=== PATIENT | male | born 1965 | race Caucasian/White ===

== ENCOUNTER 2021-11-14 16:00 | Outpatient (REF) | payer OTHER, SELFPAY ==
[2021-11-14 16:12] LABS: MANUAL DIFF FLAG NO
[2021-11-14 16:18] LABS: Basophils Absolute Auto 0.1 X10*3/uL (0.0-0.2); Eosinophils Absolute Auto 0.3 X10*3/uL (0.0-0.4); Eosinophils Percent Auto 4.6 % (0-4); Hematocrit 40.6 % (42.0-52.0); Hemoglobin 14.1 g/dl (14.0-18.0); Imm Gran Abs Auto 0.02 X10*3/uL (0.00-0.03); Imm Gran Pct Auto 0.3 % (0.0-0.4); Lymphocytes Absolute Auto 1.4 X10*3/uL (1.2-4.9); Lymphocytes Percent Auto 24.2 % (20-40); Mean Corpuscular HGB Conc 34.7 g/dl (31.0-36.0); Mean Corpuscular Hemoglobin 30.9 pg (27.0-33.0); Mean Platelet Volume 8.8 fL (9.4-12.4); Monocytes Absolute Auto 0.9 X10*3/uL (0.1-1.2); Monocytes Percent Auto 14.9 % (2-11); Neutrophils Absolute Auto 3.2 x10*3/uL (2.0-8.3); Platelet Count 225 X10*3/uL (160-400); Red Blood Count 4.56 X10*6/uL (4.60-5.80); Red Cell Distribution Width 11.2 % (11.0-16.0); White Blood Count 5.9 X10*3/uL (4.8-10.8)
[2021-11-14 16:47] LABS: Alanine Aminotransferase 25 U/L (0-40); Albumin Level 4.7 g/dL (3.5-5.0); Alkaline Phosphatase 79 U/L (39-117); Anion Gap 15 (12-20); Aspartate Amino Transferase 27 U/L (5-37); Bilirubin Total 1.2 mg/dL (0.0-1.0); Blood Urea Nitrogen 16 mg/dL (9-16); Calcium 9.8 mg/dL (8.4-10.2); Carbon Dioxide 25 mmol/L (22-29); Chloride 96 mmol/L (96-108); Cholesterol 258 mg/dL; Estimated Glomerular Filt Rate > 60; Glucose Fasting 76 mg/dL (60-99); HDL Cholesterol 83 mg/dL; LDL Cholesterol Calculated 164 mg/dl; Sodium 132 mmol/L (135-145); Total Protein 7.6 g/dL (6.5-8.0); Triglycerides 59 mg/dL
[2021-11-14 17:34] LABS: Prostate Specific Antigen Scr 4.28 ng/mL (<0.05-4.0); TSH reflex Free T4 0.57 uIU/mL (0.32-4.0)
[2021-11-14 17:49] LABS: Creatinine Urine 44.93 mg/dL; Microalbumin Urine < 5.0 mg/L
== END 2021-11-14 16:01 | disposition home or self-care (01) ==
LOC: HO.LAB 16:00
PROVIDERS: PCP Physician Assistant; Visit Provider Physician Assistant
DX: I10 Essential (primary) hypertension (principal); Z12.5 Encounter for screening for malignant neoplasm of prostate
CPT/HCPCS: 36415; 80053; 80061; 82043; 84153; 84443; 85025; 85027

== ENCOUNTER 2022-02-13 16:29 | Outpatient (REF) | payer OTHER, SELFPAY ==
[2022-02-13 17:40] LABS: Hematocrit 39.5 % (42.0-52.0); Hemoglobin 13.5 g/dl (14.0-18.0); Mean Corpuscular HGB Conc 34.2 g/dl (31.0-36.0); Mean Corpuscular Hemoglobin 30.5 pg (27.0-33.0); Mean Corpuscular Volume 89.2 fL (80.0-98.0); Mean Platelet Volume 9.3 fL (9.4-12.4); Platelet Count 233 X10*3/uL (160-400); Red Blood Count 4.43 X10*6/uL (4.60-5.80); Red Cell Distribution Width 11.4 % (11.0-16.0); White Blood Count 5.1 X10*3/uL (4.8-10.8)
[2022-02-13 18:05] LABS: Alanine Aminotransferase 23 U/L (0-40); Albumin Level 4.7 g/dL (3.5-5.0); Alkaline Phosphatase 70 U/L (39-117); Anion Gap 14 (12-20); Aspartate Amino Transferase 26 U/L (5-37); Bilirubin Total 1.1 mg/dL (0.0-1.0); Blood Urea Nitrogen 18 mg/dL (9-16); Calcium 9.5 mg/dL (8.4-10.2); Carbon Dioxide 26 mmol/L (22-29); Chloride 98 mmol/L (96-108); Cholesterol 213 mg/dL; Estimated Glomerular Filt Rate > 60; Glucose Fasting 76 mg/dL (60-99); HDL Cholesterol 88 mg/dL; LDL Cholesterol Calculated 115 mg/dl; Potassium 4.1 mmol/L (3.3-5.1); Sodium 134 mmol/L (135-145); Total Protein 7.5 g/dL (6.5-8.0); Triglycerides 50 mg/dL
== END 2022-02-13 16:30 | disposition home or self-care (01) ==
LOC: HO.LAB 16:29
PROVIDERS: PCP Physician Assistant; Visit Provider Physician Assistant
DX: E78.2 Mixed hyperlipidemia (principal)
CPT/HCPCS: 36415; 80053; 80061; 85027

== ENCOUNTER 2022-07-09 11:54 | Outpatient (REF) | payer OTHER, SELFPAY ==
--- NOTE | 2022-07-09 | EMG_ITS ---
Right median and ulnar motor and sensory studies were performed. Right radial sensory study was performed and paraspinal muscles were tested. IMPRESSION: 1. 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 2. Mild to moderate right ulnar neuropathy across cubital tunnel. MD FLORES Drake/RAKESH / [id number]
== END 2022-07-09 11:55 | disposition home or self-care (01) ==
LOC: HO.NEURO 11:54
PROVIDERS: PCP Physician Assistant; Visit Provider Physician Assistant
DX: R20.2 Paresthesia of skin (principal); R53.1 Weakness
CPT/HCPCS: 95886; 95909

== ENCOUNTER 2022-08-06 16:22 | Outpatient (REF) | payer OTHER, SELFPAY ==
[2022-08-06 17:06] LABS: Hematocrit 39.6 % (42.0-52.0); Hemoglobin 13.8 g/dl (14.0-18.0); Mean Corpuscular HGB Conc 34.8 g/dl (31.0-36.0); Mean Corpuscular Hemoglobin 30.8 pg (27.0-33.0); Mean Corpuscular Volume 88.4 fL (80.0-98.0); Platelet Count 244 X10*3/uL (160-400); Red Blood Count 4.48 X10*6/uL (4.60-5.80); Red Cell Distribution Width 11.2 % (11.0-16.0); White Blood Count 5.9 X10*3/uL (4.8-10.8)
[2022-08-06 18:22] LABS: Alanine Aminotransferase 23 U/L (0-40); Albumin Level 4.6 g/dL (3.5-5.0); Alkaline Phosphatase 75 U/L (39-117); Anion Gap 12 (12-20); Aspartate Amino Transferase 25 U/L (5-37); Bilirubin Total 0.9 mg/dL (0.0-1.0); Blood Urea Nitrogen 12 mg/dL (9-16); Calcium 9.5 mg/dL (8.4-10.2); Carbon Dioxide 27 mmol/L (22-29); Chloride 99 mmol/L (96-108); Cholesterol 220 mg/dL; Estimated Glomerular Filt Rate > 60; Glucose Fasting 74 mg/dL (60-99); HDL Cholesterol 80 mg/dL; LDL Cholesterol Calculated 128 mg/dl; Potassium 4.4 mmol/L (3.3-5.1); Sodium 134 mmol/L (135-145); TSH reflex Free T4 0.72 uIU/mL (0.32-4.0); Total Protein 7.3 g/dL (6.5-8.0); Triglycerides 62 mg/dL
[2022-08-06 18:29] LABS: Creatinine Urine 97.63 mg/dL; Microalbumin Urine < 5.0 mg/L
== END 2022-08-06 16:23 | disposition home or self-care (01) ==
LOC: HO.LAB 16:22
PROVIDERS: PCP Physician Assistant; Visit Provider Physician Assistant
DX: I10 Essential (primary) hypertension (principal); E78.2 Mixed hyperlipidemia
CPT/HCPCS: 36415; 80053; 80061; 82043; 84443; 85027

== ENCOUNTER 2023-02-04 16:26 | Outpatient (REF) | payer OTHER, SELFPAY ==
[2023-02-04 17:40] LABS: Hematocrit 40.7 % (42.0-52.0); Mean Corpuscular HGB Conc 34.4 g/dl (31.0-36.0); Mean Corpuscular Hemoglobin 30.6 pg (27.0-33.0); Mean Corpuscular Volume 89.1 fL (80.0-98.0); Mean Platelet Volume 9.2 fL (9.4-12.4); Platelet Count 229 X10*3/uL (160-400); Red Blood Count 4.57 X10*6/uL (4.60-5.80); Red Cell Distribution Width 11.4 % (11.0-16.0); White Blood Count 5.6 X10*3/uL (4.8-10.8)
[2023-02-04 18:10] LABS: Microalbum/Creatinine Ratio Ur 4.8 ug/mg cr
[2023-02-04 18:24] LABS: Alanine Aminotransferase 28 U/L (0-40); Albumin Level 4.6 g/dL (3.5-5.0); Alkaline Phosphatase 81 U/L (39-117); Anion Gap 15 (12-20); Aspartate Amino Transferase 32 U/L (5-37); Bilirubin Total 1.5 mg/dL (0.0-1.0); Blood Urea Nitrogen 14 mg/dL (9-16); Calcium 9.6 mg/dL (8.4-10.2); Carbon Dioxide 25 mmol/L (22-29); Chloride 98 mmol/L (96-108); Cholesterol 203 mg/dL; Estimated Glomerular Filt Rate > 60; Glucose Fasting 66 mg/dL (60-99); HDL Cholesterol 83 mg/dL; LDL Cholesterol Calculated 110 mg/dl; Potassium 4.2 mmol/L (3.3-5.1); Sodium 134 mmol/L (135-145); Total Protein 7.4 g/dL (6.5-8.0); Triglycerides 51 mg/dL
[2023-02-04 18:40] LABS: Prostate Specific Antigen Scr 4.99 ng/mL (<0.05-4.0); TSH reflex Free T4 0.58 uIU/mL (0.32-4.0)
== END 2023-02-04 16:27 | disposition home or self-care (01) ==
LOC: HO.LAB 16:26
PROVIDERS: PCP Physician Assistant; Visit Provider Physician Assistant
DX: Z12.5 Encounter for screening for malignant neoplasm of prostate (principal); R97.20 Elevated prostate specific antigen [PSA]; I10 Essential (primary) hypertension; E78.2 Mixed hyperlipidemia
CPT/HCPCS: 36415; 80053; 80061; 82043; 84153; 84443; 85027

== ENCOUNTER 2023-08-11 16:30 | Outpatient (REF) | payer OTHER, SELFPAY ==
[2023-08-11 18:19] LABS: Hematocrit 40.9 % (42.0-52.0); Hemoglobin 14.2 g/dl (14.0-18.0); Mean Corpuscular HGB Conc 34.7 g/dl (31.0-36.0); Mean Corpuscular Hemoglobin 31.1 pg (27.0-33.0); Mean Corpuscular Volume 89.5 fL (80.0-98.0); Mean Platelet Volume 9.6 fL (9.4-12.4); Platelet Count 305 X10*3/uL (160-400); Red Blood Count 4.57 X10*6/uL (4.60-5.80); Red Cell Distribution Width 11.4 % (11.0-16.0); White Blood Count 5.9 X10*3/uL (4.8-10.8)
[2023-08-11 19:19] LABS: Alanine Aminotransferase 27 U/L (0-40); Albumin Level 4.6 g/dL (3.5-5.0); Alkaline Phosphatase 83 U/L (39-117); Anion Gap 12 (12-20); Aspartate Amino Transferase 30 U/L (5-37); Blood Urea Nitrogen 11 mg/dL (9-16); Calcium 9.5 mg/dL (8.4-10.2); Carbon Dioxide 28 mmol/L (22-29); Chloride 99 mmol/L (96-108); Cholesterol 202 mg/dL (<200); Estimated Glomerular Filt Rate > 60; Glucose Fasting 67 mg/dL (60-99); HDL Cholesterol 76 mg/dL (>40); LDL Cholesterol Calculated 114 mg/dL (<100); Potassium 3.8 mmol/L (3.3-5.1); Sodium 135 mmol/L (135-145); Total Protein 7.8 g/dL (6.5-8.0); Triglycerides 61 mg/dL (<150)
[2023-08-11 19:40] LABS: Prostate Specific Antigen Scr 5.11 ng/mL (<0.05-4.0)
== END 2023-08-11 16:31 | disposition home or self-care (01) ==
LOC: HO.LAB 16:30
PROVIDERS: PCP Physician Assistant; Visit Provider Physician Assistant
DX: Z12.5 Encounter for screening for malignant neoplasm of prostate (principal); R97.20 Elevated prostate specific antigen [PSA]; I10 Essential (primary) hypertension; E78.2 Mixed hyperlipidemia
CPT/HCPCS: 36415; 80053; 80061; 84153; 85027

== ENCOUNTER 2023-08-19 15:33 | Outpatient (AMB) | payer OTHER, SELFPAY ==
[2023-08-19 15:42] VITALS: BP 128/78; PULSE 76; RESP 16; BMI 21.6
--- NOTE | 2023-08-19 15:42 | MHC.PC.OV ---
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 Accompanied by: Self / Same As Patient Allergies buspirone [From BuSpar] Allergy (Unknown, Verified 08/19/23 16:00) anxious Medication List - Last Reconciled 08/19/23 by Jonathon Man PA-C carisoprodol (Soma) 350 mg PO BEDTIME 30 days lisinopril-hydrochlorothiazide 10-12.5 mg 1 tab PO DAILY 90 days lorazepam 0.5 mg PO BID 30 days simvastatin 10 mg PO BEDTIME 90 days Tobacco use date assessed: 02/17/23 Dental Screening Dental Screen Date: 08/19/23 Did you have a dental visit in the last 12 months?: No Did you have a dental problem in the last 6 months where you did not have access to dental care?: No Was dental information given to patient?: Patient declined HPI 6 months F/U HPI Details Patient is a 58-year-old male here today for follow-up visit.? Patient has a past medical history significant for hyperlipidemia, generalized anxiety disorder, chronic low back pain. .. Anxiety:? Patient does not see a therapist at this time, does use lorazepam few times per week with good effect on reducing anxiety .. .. Hyperlipidemia:? Most recent fasting lipid panel acceptable, total cholesterol 203 .. Lumbar spine pain:? Reports having a back injury several years ago, does use Soma on a p.r.n. basis due to his labor-intensive job.? 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 Mother No problems noted. 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 ) Questionnaire Thrive Questionnaire Date Thrive assessed: 02/17/23 KANWAL-7 AMB Questionnaire KANWAL-7 Date KANWAL - 7 assessed: 02/17/23 Source: Developed by Drs. Etienne Contreras, Caro Neil, Anmol Rocha and colleagues, with an educational nettie from [employer]. Review of Systems Const Denies headache(s) Eyes Denies loss of vision ENT Denies vertigo, Denies dizziness, Denies headache(s) and Denies sore throat Card Denies chest pain, Denies leg edema and Denies lightheadedness Resp Denies cough, Denies hemoptysis and Denies wheezing GI Denies abdominal pain, Denies melena, Denies constipation, Denies diarrhea and Denies vomiting Denies dysuria, Denies urinary frequency and Denies urinary urgency Musc Denies arthralgias, Denies joint swelling, Denies numbness and Denies tingling Neuro Denies Abnormal speech present, Denies behavioral changes, Denies vertigo, Denies dizziness, Denies headache(s), Denies loss of vision, Denies memory loss, Denies numbness and Denies tingling Psych Denies anxiety, Denies behavioral changes, Denies depression, Denies memory loss and Denies panic attacks Eladio/Lymph Denies easy bleeding and Denies easy bruising Aller/Immun Denies wheezing Physical exam (Primary Care) Vital Signs: Last Vital Signs Pulse 76 08/19/23 15:42 Resp 16 08/19/23 15:42 BP 128/78 08/19/23 15:42 BMI result Body Mass Index 21.6 Tobacco/Smoking Status: Tobacco use Status Tobacco use date assessed 02/17/23 08/19/23 15:47 Patient Tobacco Use Status Never used Tobacco 08/19/23 15:47 e-Cigarette/Vaping Use Never Used 08/19/23 15:47 Thrive Assessment: Date of Thrive Assessment Date Thrive assessed 02/17/23 08/19/23 15:47 Const General: healthy appearing, no acute distress, alert and awake Nutritional Appearance: well nourished Orientation/consciousness: oriented to person, oriented to place and oriented to time HENMT Ears: TM's normal bilaterally General nose exam: Normal nasal mucous membranes and turbinates present Eyes Conjunctivae: conjunctivae normal Sclerae: sclerae normal Pupils: Equal, round and reactive pupils present Neck Neck: Yes no lymphadenopathy and Yes no JVD Thyroid: Thyroid normal Carotids: no bruits Resp Effort & Inspection: normal respiratory effort and not tachypneic Auscultation: no crackles, no rales, no rhonchi and no wheezes Cardio Rate: regular rate Rhythm: regular rhythm Heart sounds: no murmurs and normal S1 and S2 GI Palpation (GI): Soft to palpation, nontender, no hepatomegaly and no splenomegaly Auscultation: normal bowel sounds Skin General skin exam: no rashes or lesions noted and dry skin Neuro General: oriented to person, oriented to place and oriented to time Cranial nerves: Yes Equal, round and reactive pupils present Speech: No Abnormal speech present Gait exam (Neuro): Normal gait present Motor exam (neuro): no tremor noted Extrem Right upper extremity: full ROM Left upper extremity: full ROM Right lower extremity: full ROM; no edema Left lower extremity: full ROM; no edema Psych Mental Status: mental status grossly normal Speech and movement: Normal speech and movement present Affect: normal affect Attitude: cooperative Thought process: Normal thought process present Assessment and Plan Assessment & Plan (1) HTN (hypertension): Code(s): I10 - Essential (primary) hypertension Qualifiers: Hypertension type: primary hypertension Qualified Code(s): I10 - Essential (primary) hypertension Plan: Blood pressure acceptable today in office. Will continue his current dose of lisinopril hydrochlorothiazide with goal blood pressure to be below 40/90 (2) Elevated PSA: Code(s): R97.20 - Elevated prostate specific antigen [PSA] Plan: Noted slightly elevation in his PSA. He denies any weak urinary stream nocturia. We did discuss the possibility of seeing urologist for evaluation of possible biopsy though patient would like to hold off and recheck PSA in 6 months and if further more elevated will consider urology evaluation. He is willing to start finasteride (3) HLD (hyperlipidemia): Code(s): E78.5 - Hyperlipidemia, unspecified Qualifiers: Hyperlipidemia type: mixed hyperlipidemia Qualified Code(s): E78.2 - Mixed hyperlipidemia Plan: Patient's lipid panel acceptable with LDL below 130. Continues on low-dose simvastatin. (4) KANWAL (generalized anxiety disorder): Code(s): F41.1 - Generalized anxiety disorder Plan: Patient's anxiety has been well controlled with only p.r.n. use of lorazepam Orders: Orders Comprehensive [place]. Panel Fast 08/19/23 I10 - Essential (primary) hypertension Microalbumin, Random (w Creat) 08/19/23 I10 - Essential (primary) hypertension Lipid Panel 08/19/23 E78.2 - Mixed hyperlipidemia Prostate Specific Antigen Scr 08/19/23 R97.20 - Elevated prostate specific antigen [PSA], Z12.5 - Encounter for screening for malignant neoplasm of prostate Medications: New finasteride 5 mg PO DAILY 90 days 90 tabs 1RF R97.20 - Elevated prostate specific antigen [PSA] Refilled lorazepam 0.5 mg PO BID 30 days 60 tabs 1RF F41.1 - Generalized anxiety disorder carisoprodol (Soma) 350 mg PO BEDTIME 30 days 30 tabs 2RF muscle pain M62.830 - Muscle spasm of back Coding Level of Care Code Est Pt Level 4 (75404) Diagnoses Primary hypertension I10 Hypertension type: primary hypertension Elevated PSA R97.20 Mixed hyperlipidemia E78.2 Hyperlipidemia type: mixed hyperlipidemia KANWAL (generalized anxiety disorder) F41.1
== END 2023-08-19 16:14 | disposition home or self-care (01) ==
PROVIDERS: PCP Physician Assistant; Visit Provider Physician Assistant
DX: I10 Essential (primary) hypertension (principal); R97.20 Elevated prostate specific antigen [PSA]; E78.2 Mixed hyperlipidemia; F41.1 Generalized anxiety disorder
CPT/HCPCS: 99214

== ENCOUNTER 2024-05-24 16:24 | Outpatient (REF) | payer OTHER, SELFPAY ==
[2024-05-24 17:25] LABS: Microalbum/Creatinine Ratio Ur 3.9 ug/mg cr (<30)
[2024-05-24 17:40] LABS: Alanine Aminotransferase 24 U/L (0-40); Albumin Level 4.7 g/dL (3.5-5.0); Alkaline Phosphatase 82 U/L (39-117); Anion Gap 14 (12-20); Aspartate Amino Transferase 29 U/L (5-37); Bilirubin Total 1.1 mg/dL (0.0-1.0); Blood Urea Nitrogen 12 mg/dL (9-16); Calcium 9.8 mg/dL (8.4-10.2); Carbon Dioxide 27 mmol/L (22-29); Chloride 99 mmol/L (96-108); Cholesterol 194 mg/dL (<200); Estimated Glomerular Filt Rate > 60; Glucose Fasting 82 mg/dL (60-99); HDL Cholesterol 87 mg/dL (>40); LDL Cholesterol Calculated 97 mg/dL (<100); Potassium 3.8 mmol/L (3.3-5.1); Sodium 136 mmol/L (135-145); Total Protein 7.8 g/dL (6.5-8.0); Triglycerides 52 mg/dL (<150)
[2024-05-24 18:02] LABS: Prostate Specific Antigen Scr 3.68 ng/mL (<0.05-4.0)
== END 2024-05-24 16:25 | disposition home or self-care (01) ==
LOC: HO.LAB 16:24
PROVIDERS: PCP Physician Assistant; Visit Provider Physician Assistant
DX: I10 Essential (primary) hypertension (principal); E78.2 Mixed hyperlipidemia; Z12.5 Encounter for screening for malignant neoplasm of prostate; R97.20 Elevated prostate specific antigen [PSA]
CPT/HCPCS: 36415; 80053; 80061; 82043; 82570; 84153

== ENCOUNTER 2024-05-31 15:55 | Outpatient (AMB) | payer OTHER, SELFPAY ==
--- NOTE | 2024-05-31 16:09 | MHC.PC.OV ---
Vital Signs 05/31/24 16:15 Height 5 ft 8 in Weight 140 lb 8 oz BMI 21.4 BP 128/80 Blood Pressure Location Lt brachial Position Sitting Pulse 78 Pulse Source Pulse Oximeter Pulse Oximetry (%) 98 Oxygen Delivery Method Room Air Intake Visit Reasons: annual exam Intake Note: Patient is here today for a physical. 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 Accompanied by: Self / Same As Patient Allergies buspirone [From BuSpar] Allergy (Unknown, Verified 05/31/24 16:17) anxious Medication List - Last Reconciled 05/31/24 by Jonathon Man PA-C carisoprodol (Soma) 350 mg PO BEDTIME 30 days finasteride 5 mg PO DAILY 90 days lisinopril-hydrochlorothiazide 10-12.5 mg 1 tab PO DAILY 90 days lorazepam 0.5 mg PO BID 30 days simvastatin 10 mg PO BEDTIME 90 days Tobacco use date assessed: 05/31/24 Dental Screening Dental Screen Date: 05/31/24 Did you have a dental visit in the last 12 months?: No Did you have a dental problem in the last 6 months where you did not have access to dental care?: No Was dental information given to patient?: No HPI annual exam HPI Details Patient is a 58-year-old male here today for a routine annual physical.? Patient has a past medical history significant for hyperlipidemia, generalized anxiety disorder, chronic low back pain. .. Anxiety:? Patient does not see a therapist at this time, does use lorazepam few times per week with good effect on reducing anxiety .. .. Hyperlipidemia:? Most recent fasting lipid panel acceptable showing improved total cholesterol and LDL. Continues on low-dose statin therapy without any side effects. .. Lumbar spine pain:? Reports having a back injury several years ago, does use Soma on a p.r.n. basis due to his labor-intensive job.? 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 Vaccines:? UTD Tdap,? UTD with COVID. needs Shingrex .. ?Colon cancer screening:? Done in 2018 ( Dr Lynn) needed repeat 10 years, hyperplastic polyp found Laboratory Tests 08/11/23 05/24/24 05/24/24 16:40 16:29 16:32 RBC 4.57 L Hgb 14.2 Cholesterol 202 H 194 LDL Cholesterol, C alc 114 H 97 PSA Screen 5.11 H 3.68 Urine Microalbumin 6.0 PFSH Surgical History No pertinent past surgical history Family History Father No problems noted. Mother No problems noted. 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 ) Questionnaire PHQ-9 Over the last 2 weeks, how often have you been bothered by any of the following problems? 1. Little interest or pleasure in doing things: not at all 2. Feeling down, depressed, or hopeless: not at all 3. Trouble falling or staying asleep, or sleeping too much: not at all 4. Feeling tired or having little energy: not at all 5. Poor appetite or overeating: not at all 6. Feeling bad about yourself - or that you are a failure or have let yourself or your family down: not at all 7. Trouble concentrating on things, such as reading the newspaper or watching television: not at all 8. Moving or speaking so slowly that other people could have noticed. Or the opposite - being so fidgety or restless that you have been moving around a lot more than usual: not at all 9. Thoughts that you would be better off or of hurting yourself in some way: not at all Total score: 0 Depression Screening Interpretation: Negative Depression Screening Done: Yes 76478 - PHQ-9 Billing: Yes Source: Developed by Drs. Etienne Contreras, Caro Neil, nAmol Rocha and colleagues, with an educational nettie from [employer]. Thrive Questionnaire Date Thrive assessed: 05/31/24 I am a: Patient What is your living situation today?: I have a steady place to live Within the past 12 months, did the food you bought not last and you didn't have the money to get more?: Never true Within the past 12 months, did you worry whether your food would run out before you got money to buy more?: Never true Do you have trouble paying for medicines?: No Do you have trouble getting transportation to medical appointments?: No Do you have trouble paying your heating and electricity bill?: No Do you have trouble taking care of your child, family member or friend?: I choose not to answer this question Do you have trouble with day-to-day activities such as bathing, preparing meals, shopping, managing finances, etc.?: No Are you currently unemployed and looking for a job?: No Are you interested in more education?: No Please select the resources that you would like help with: None Currently or been in a relationship where the following occur: I choose not to answer THRIVE Score: 0 AUDIT C Alcohol Use Questionnaire (AUDIT-C) 1. How often do you have a drink containing alcohol?: 2-3 times a week 2. How many drinks containing alcohol do you have on a typical day when you are drinking?: 3 or 4 3. How often do you have six or more drinks on one occasion?: Weekly Total Score: 7 KANWAL-7 AMB Questionnaire KANWAL-7 Date KANWAL - 7 assessed: 05/31/24 Feeling nervous, anxious, or on edge: 1 = Several days Not being able to stop or control worryin = Not at all Worrying too much about different things: 0 = Not at all Trouble relaxin = Not at all Being so restless that it is hard to sit still: 0 = Not at all Becoming easily annoyed or irritable: 0 = Not at all Feeling afraid as if something awful might happen: 0 = Not at all Total KANWAL-7 score (0-4 normal; 5-9 mild; 10-14 moderate; 15-21 severe): 1 Source: Developed by Drs. Etienne Contreras, Caro Neil, Anmol Rocha and colleagues, with an educational nettie from [employer] KANWAL-7 Assessment Billing KANWAL-7 Assessment Tool: KANWAL-7 Assessment 38971 Review of Systems Const Denies body aches, Denies chills, Denies excessive sweating, Denies fatigue, Denies fever(s) and Denies headache(s) Eyes Denies blurry vision ENT Denies dysphagia, Denies vertigo, Denies dizziness, Denies headache(s), Denies hearing loss and Denies tinnitus Card Denies chest pain, Denies chest pain with activity, Denies syncope, Denies irregular heart rhythm and Denies dyspnea Resp Denies chest congestion, Denies cough, Denies hemoptysis, Denies dyspnea and Denies wheezing GI Denies abdominal pain, Denies melena, Denies hematochezia, Denies coffee ground emesis, Denies dysphagia, Denies diarrhea, Denies nausea and Denies vomiting Denies difficulty urinating, Denies dysuria, Denies urinary frequency, Denies urinary hesitancy and Denies urinary urgency Musc Denies arthralgias, Denies limited range of motion, Denies muscle cramps and Denies muscle weakness Skin/Breast Denies rash and Denies skin ulcer Neuro Denies Abnormal speech present, Denies confusion, Denies vertigo, Denies dizziness, Denies syncope, Denies headache(s), Denies memory loss and Denies seizure-like activity Psych Denies anxiety, Denies confusion, Denies depression, Denies memory loss, Denies panic attacks and Denies paranoia Endo Denies excessive sweating, Denies fatigue, Denies flushing, Denies polydipsia and Denies polyuria Aller/Immun Denies wheezing Physical exam (Primary Care) Vital Signs: Last Vital Signs Pulse 78 05/31/24 16:15 BP 128/80 05/31/24 16:15 Pulse Ox 98 05/31/24 16:15 Oxygen Delivery Method Room Air 05/31/24 16:15 BMI result Body Mass Index 21.4 Tobacco/Smoking Status: Tobacco use Status Tobacco use date assessed 05/31/24 05/31/24 16:16 Patient Tobacco Use Status Never used Tobacco 05/31/24 16:21 e-Cigarette/Vaping Use Never Used 05/31/24 16:21 PHQ-9: PHQ-9 Score PHQ-9: Total score 0 05/31/24 16:20 Depression Screening Interpretation: Negative Thrive Assessment: Date of Thrive Assessment Date Thrive assessed 05/31/24 05/31/24 16:16 Currently or been in a relationship where the following occur: I choose not to answer Const General: cooperative, comfortable, no acute distress, alert and awake; No confusion Orientation/consciousness: oriented to person, oriented to place, patient oriented x3 and No confusion HENMT Head: Yes normocephalic Ears: external ears normal and TM's normal bilaterally Face and sinus: No sinus tenderness Mouth: Normal oral and palatal mucosa present and tongue normal Teeth and gingiva: dentition normal and gingiva normal Throat: Yes posterior oropharynx normal, Yes tonsils normal and Yes uvula midline Eyes Conjunctivae: conjunctivae normal Sclerae: sclerae normal Pupils: Equal, round and reactive pupils present EOM: EOMs intact bilaterally Direct Ophthalmoscopy: No no photophobia Neck Neck: Yes no lymphadenopathy, No tender and Yes no JVD Thyroid: Thyroid normal Carotids: no bruits Chest Chest palpation & inspection: no tenderness Resp Effort & Inspection: normal respiratory effort, no audible wheezes, not labored and no stridor Auscultation: no crackles, no rales, no rhonchi and no wheezes Cardio Jugular venous distension: no JVD Rate: regular rate, not bradycardic and not tachycardic Rhythm: regular rhythm Bruits: no carotid bruits Peripheral pulses: Peripheral pulses 2+ throughout GI Inspection: Yes normal to inspection, No abdominal wall ecchymosis and No visible herniation Palpation (GI): Soft to palpation, nontender, no guarding, not rigid and No hepatosplenomegaly present Auscultation: normoactive bowel sounds General: Yes no CVA tenderness Back/Spine/Pelvis Back: no CVA tenderness and No back tenderness Cervical Spine: cervical ROM normal Thoracic/Lumbar Spine: thoracic and lumbar spine normal to inspection, straight leg raise negative bilaterally, No thoraco-lumbar ROM limited and No lumbar spinal tenderness Skin Lesions: no lesions Rashes: no rashes Wounds: no wounds Neuro General: oriented to person, oriented to place, patient oriented x3, CN's II-XI intact bilaterally and No confusion Cranial nerves: Yes Equal, round and reactive pupils present and Yes Normal accommodation reflex present Cognition (Neuro): normal cognition Speech: No Abnormal speech present Gait exam (Neuro): Normal gait present Motor exam (neuro): 5/5 motor strength present throughout Extrem Right upper extremity: full ROM; no cyanosis Left upper extremity: full ROM; no cyanosis Right lower extremity: no edema Left lower extremity: no edema Psych Appearance: grossly normal Mental Status: mental status grossly normal Affect: normal affect Attitude: cooperative Thought process: Normal thought process present Coding Level of Care Code Est Pt Prev Care 40-64y(60441) Diagnoses Annual physical exam Z00.00 KANWAL (generalized anxiety disorder) F41.1 Primary hypertension I10 Hypertension type: primary hypertension Mixed hyperlipidemia E78.2 Hyperlipidemia type: mixed hyperlipidemia Additional Codes KANWAL-7 Assessment Billing - KANWAL-7 Assessment Tool: KANWAL-7 Assessment [id number] ([id number]) Assessment & Plan Assessment & Plan (1) Annual physical exam: Code(s): Z00.00 - Encounter for general adult medical examination without abnormal findings Category: Medical Plan: As per HPI (2) KANWAL (generalized anxiety disorder): Code(s): F41.1 - Generalized anxiety disorder Category: Medical Plan: Patient reports his anxiety is fairly well controlled. Does use lorazepam from time to time for hypotensive anxiety. (3) HTN (hypertension): Code(s): I10 - Essential (primary) hypertension Category: Medical Qualifiers: Hypertension type: primary hypertension Qualified Code(s): I10 - Essential (primary) hypertension Plan: Patient's blood pressure acceptable today in office. Will continue him on his current dose of lisinopril hydrochlorothiazide. Goal blood pressures to be below 140/90 (4) HLD (hyperlipidemia): Code(s): E78.5 - Hyperlipidemia, unspecified Category: Medical Qualifiers: Hyperlipidemia type: mixed hyperlipidemia Qualified Code(s): E78.2 - Mixed hyperlipidemia Plan: Patient's most recent lipid panel showing excellent control of his total cholesterol and LDL. He continues on simvastatin 10 mg without any side effect. Goal LDL is to remain below 160 Orders: Orders Complete Blood Count no Diff 6 Months I10 - Essential (primary) hypertension Lipid Panel 6 Months E78.2 - Mixed hyperlipidemia Microalbumin, Random (w Creat) 6 Months I10 - Essential (primary) hypertension Comprehensive [place]. Panel Fast 6 Months I10 - Essential (primary) hypertension Prostate Specific Antigen Scr 6 Months R97.20 - Elevated prostate specific antigen [PSA], Z12.5 - Encounter for screening for malignant neoplasm of prostate Medications: Refilled lorazepam 0.5 mg PO BID 60 tabs 1RF 30 days F41.1 - Generalized anxiety disorder carisoprodol (Soma) 350 mg PO BEDTIME 30 tabs 2RF muscle pain 30 days M62.830 - Muscle spasm of back Patient Instructions: Goal:Blood pressure to remain below 140/90 Barrier: Adherence to physical activity and healthy eating habits
[2024-05-31 16:15] VITALS: BP 128/80; PULSE 78; O2SAT 98; BMI 21.4
== END 2024-05-31 16:35 | disposition home or self-care (01) ==
PROVIDERS: PCP Physician Assistant; Visit Provider Physician Assistant
DX: Z00.00 Encounter for general adult medical examination without abnormal findings (principal); F41.1 Generalized anxiety disorder; I10 Essential (primary) hypertension; E78.2 Mixed hyperlipidemia; Z23 Encounter for immunization

== ENCOUNTER → 2024-05-31 15:55 | Outpatient (BNVA) | payer OTHER, SELFPAY | PROVIDERS: PCP Physician Assistant; Visit Provider Physician Assistant | DX: Z00.00 Encounter for general adult medical examination without abnormal findings (principal); F41.1 Generalized anxiety disorder; I10 Essential (primary) hypertension; E78.5 Hyperlipidemia, unspecified; Z79.899 Other long term (current) drug therapy | CPT/HCPCS: 90471; 96127 ==

== ENCOUNTER 2024-08-15 23:33 | Emergency (ER) | payer OTHER, SELFPAY ==
--- NOTE | 2024-08-15 | ECG_ITS ---
Test Reason : CHEST PAIN Blood Pressure : / mmHG Vent. Rate : 087 BPM Atrial Rate : 087 BPM P-R Int : 156 ms QRS Dur : 102 ms QT Int : 364 ms P-R-T Axes : 044 063 014 degrees QTc Int : 438 ms Normal sinus rhythm Normal ECG When compared with ECG of 30-OCT-2016 18:11, No significant changes seen Referred By: Generic ED Physician Electronically Signed By:EMANUEL SAXENA
--- NOTE | ~2024-08-15 | XR_ITS ---
EXAMINATION: XR CHEST CLINICAL INFORMATION: Left chest pain COMPARISON: None available. TECHNIQUE: Frontal view of the chest was obtained. FINDINGS: No significant abnormality is noted involving the heart, lungs, mediastinum, bony thorax or soft tissues. XR/XR chest 1V IMPRESSION: Unremarkable examination. Electronically signed by: Zay Francis MD 08/16/2024 04:45 AM [facility] [place]
[2024-08-15 23:39] VITALS: BP 134/90; BP 159/95; PULSE 100; PULSE 95; RESP 20; TEMP 36.7; O2SAT 94; O2SAT 97; BMI 21.3
[2024-08-15 23:45] VITALS: BP 134/90; PULSE 95; RESP 20; TEMP 36.7; O2SAT 97
[2024-08-16 00:17] LABS: MANUAL DIFF FLAG NO
[2024-08-16 00:19] LABS: Basophils Percent Auto 0.5 % (0-2); Eosinophils Absolute Auto 0.3 X10*3/uL (0.0-0.4); Eosinophils Percent Auto 3.7 % (0-4); Hemoglobin 14.5 g/dl (14.0-18.0); Imm Gran Abs Auto 0.03 X10*3/uL (0.00-0.03); Imm Gran Pct Auto 0.4 % (0.0-0.4); Lymphocytes Absolute Auto 0.9 X10*3/uL (1.2-4.9); Lymphocytes Percent Auto 10.5 % (20-40); Mean Corpuscular HGB Conc 35.4 g/dl (31.0-36.0); Mean Corpuscular Hemoglobin 31.1 pg (27.0-33.0); Mean Platelet Volume 8.6 fL (9.4-12.4); Monocytes Percent Auto 11.1 % (2-11); Neutrophils Absolute Auto 6.3 x10*3/uL (2.0-8.3); Neutrophils Percent Auto 73.8 % (45-73); Platelet Count 234 X10*3/uL (160-400); Red Blood Count 4.66 X10*6/uL (4.60-5.80); Red Cell Distribution Width 11.4 % (11.0-16.0); White Blood Count 8.6 X10*3/uL (4.8-10.8)
--- OUTSIDE RECORDS SUMMARY | 2024-08-16 00:28 | XMS_ITS | Patient Health Record ---
Author Organization [facility] Address [address] [place] [address] [place] [address] Care Team Providers Care Automation Test Developer Name Role Phone Jonathon Man Primary Care Provider Unavailab Etienne Ling Unavailable [phone] REASON FOR REFERRAL No Information MEDICATIONS Medication SIG (Take, Route, Fr equency, Duration) Notes Start Date End Date Status Simvastatin Active LORazepam 0.5 MG 1 tablet as needed Orally prn prn Active Soma prn Active Motrin IB 200 MG 4 tablet with food o r milk as needed Orally prn Not daily Active SOCIAL HISTORY Tobacco Use: Social History Observation Description Date Details (start date - stop date) Never Smoker NA - NA Sex Assigned At : Social History Observation Description Sex Assigned At Unknown Tobacco Use/Smoking Question Answer Notes Patient is a nonsmoker Alcohol Screen Question Answer Notes Did you have a drink contain ing alcohol in the past year? Yes How often did you have a dri nk containing alcohol in the past year? 2 to 3 times a week (3 points) How many drinks did you have on a typical day when you were drinking in the past year? 3 or 4 drinks (1 point) How often did you have 6 or more drinks on one occasion in the past year? Never (0 point) Points 4 Interpretation Positive PROBLEMS Problem Type ICD Code Onset Dates Problem Status W/U Status Risk SNOMED Code Notes Problem Encounter for screening for malignant neoplasm of colon (Z12.11) Active confirmed 221628998 Problem Pre-procedural examination (Z01.818) Active confirmed [id number] Encounters Encounter Location Date Provider Diagnosis [facility] [address] [place] [address] [place] [address] 05/15/2024 Etienne Lynn PLAN OF TREATMENT Future Test Test Name Order Date COLONOSCOPY 12/29/2017 Insurance Providers Payer Name Payer Address Payer Phone Subscriber Number Group Number Insured Name Patient Relationship to Insured Coverage Start Date Coverage End Date [facility] [address] [place] [address] [id number] ABEL BERGER Self - patient is the insured MEDICAL (GENERAL) HISTORY Medical History History ICD Code Denies CT,DM,CVA,Lung disease,renal dise ase Back pain Hyperlipidemia
--- OUTSIDE RECORDS SUMMARY | 2024-08-16 00:28 | XMS_ITS ---
Author Organization [facility] Address [address] [place] [address] Care Team Providers Care Cane Piler Name Role Phone Jonathon Man Primary Care Provider Unavailab Etienne Ling Unavailable [phone] REASON FOR VISIT COLON SCREENING Encounters Encounter Location Date Provider Diagnosis [facility] [address] [place] [address] 07/13/2023 Etienne Lynn PLAN OF TREATMENT No Information
--- OUTSIDE RECORDS SUMMARY | 2024-08-16 00:28 | XMS_ITS ---
Author Organization [facility] Address [address] [place] [address] Care Team Providers Care Cloud Administrator Name Role Phone Jonathon Man Primary Care Provider Unavailab Etienne Ling Unavailable [phone] REASON FOR VISIT returned your call Encounters Encounter Location Date Provider Diagnosis [facility] [address] [place] [address] 05/15/2024 Etienne Lynn PLAN OF TREATMENT No Information
--- OUTSIDE RECORDS SUMMARY | 2024-08-16 00:28 | XMS_ITS ---
Author Organization [facility] Address [address] [place] [address] Care Team Providers Care Dope Pourer Name Role Phone Jonathon Man Primary Care Provider Unavailab Etienne Ling Unavailable [phone] REASON FOR VISIT when to have another colonosopy Encounters Encounter Location Date Provider Diagnosis [facility] [address] [place] [address] 02/18/2023 Etienne Lynn PLAN OF TREATMENT No Information
[2024-08-16 00:30] LABS: Anion Gap 15 (12-20); Blood Urea Nitrogen 11 mg/dL (9-16); Calcium 9.4 mg/dL (8.4-10.2); Carbon Dioxide 27 mmol/L (22-29); Chloride 99 mmol/L (96-108); Creatinine Clr Calc Pharmacy 97.6; Estimated Glomerular Filt Rate > 60; Glucose Random 101 mg/dL (60-115); Potassium 4.7 mmol/L (3.3-5.1); Sodium 136 mmol/L (135-145)
[2024-08-16 00:47] LABS: Troponin-I High Sensitivity < 2.7 ng/L (<3.5-35.0)
--- NOTE | 2024-08-16 01:03 | ED_ITS ---
HPI - Chest Pain General Chief Complaint: Chest Pain Stated Complaint: CHEST PAIN Time Seen by Provider: 08/16/24 00:58 Source: patient Mode of arrival: ambulatory Limitations: no limitations History of Present Illness ED Provider: HPI narrative: Patient's history of anxiety hypertension high cholesterol around 21:00 while watching TV noticed sudden onset of chest pain in the left side in the lower ribs increases on palpation and deep breaths patient took 2 tablets of lorazepam and was given aspirin by EMS still having pain on palpation Related Data Previous Rx's ?Medication ?Instructions ?Recorded finasteride 5 mg tablet 5 mg PO DAILY 90 days #90 tabs 02/24/24 lisinopril 10 1 tab PO DAILY 90 days #90 tabs 02/24/24 mg-hydrochlorothiazide 12.5 mg tablet simvastatin 10 mg tablet 10 mg PO BEDTIME 90 days #90 tabs 02/24/24 carisoprodol 350 mg tablet (Soma) 350 mg PO BEDTIME muscle pain 30 05/31/24 days #30 tabs lorazepam 0.5 mg tablet 0.5 mg PO BID 30 days #60 tabs 08/01/24 ibuprofen 600 mg tablet 600 mg PO Q6H PRN fever or pain 08/16/24 #30 tabs Allergies Allergy/AdvReac Type Severity Reaction Status Date / Time buspirone [From BuSpar] Allergy Unknown anxious Verified 08/15/24 23:43 Review of Systems 2 Review of Systems: Yes all other systems are reviewed and are negative [facility] Past Medical History Surgical History No pertinent past surgical history Family History Family History Father No problems noted. Mother No problems noted. 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 ) Physical Exam 2 Vital Signs: Vital Signs: Last Vital Signs Temp 98.0 F 08/16/24 01:46 Pulse 91 08/16/24 01:46 Resp 18 08/16/24 01:46 BP 113/74 08/16/24 01:46 Pulse Ox 98 08/16/24 01:46 O2 Del Method Room Air 08/16/24 01:46 BMI result Body Mass Index 21.3 Appearance: Alert. Oriented X3. No acute distress. Eyes: PERRLA, No Nystagmus ENT: Pharynx normal. Oral Mucosa moist Neck: Normal inspection. Neck supple. CVS: Normal heart rate and rhythm. Pulses normal. No murmur rub or gallop Respiratory: No respiratory distress. Equal air entry bilateral, tenderness to touch left lower rib no wheezing/rales/rhonchi Abdomen: Soft and nontender. Bowel sounds are present, no mass palpable, no CVA tenderness Skin: Skin warm and dry. Normal skin color. Normal skin turgor. Extremities: No lower extremity edema. No calf tenderness Neuro: Oriented X 3. No motor deficit. No sensory deficit.No cerebellar signs , cranial nerves II-XII intact Medical Decision Making Medical Decision Making [facility] Narrative: Patient has atypical chest pain clinically has costal chondritis cardiac enzymes negative EKG without any ischemic changes patient felt better after taking his lorazepam will give ibuprofen discharge Lab Data [facility] Lab Attestation statement: I reviewed the patient's lab results. 08/16/24 00:12 08/16/24 00:12 Labs: Lab Results 08/16/24 Range/Units 00:12 WBC 8.6 (4.8-10.8) X10*3/uL RBC 4.66 (4.60-5.80) X10*6/uL Hgb 14.5 (14.0-18.0) g/dl Hct 41.0 L (42.0-52.0) % MCV 88.0 (80.0-98.0) fL MCH 31.1 (27.0-33.0) pg MCHC 35.4 (31.0-36.0) g/dl RDW 11.4 (11.0-16.0) % Plt Count 234 (160-400) X10*3/uL MPV 8.6 L (9.4-12.4) fL Immature Gran % (Auto) 0.4 (0.0-0.4) % Neut % (Auto) 73.8 H (45-73) % Lymph % (Auto) 10.5 L (20-40) % Alexander % (Auto) 11.1 H (2-11) % Eos % (Auto) 3.7 (0-4) % Baso % (Auto) 0.5 (0-2) % Lymph # (Auto) 0.9 L (1.2-4.9) X10*3/uL Alexander # (Auto) 1.0 (0.1-1.2) X10*3/uL Eos # (Auto) 0.3 (0.0-0.4) X10*3/uL Baso # (Auto) 0.0 (0.0-0.2) X10*3/uL Abs Immat Gran (auto) 0.03 (0.00-0.03) X10*3/uL Absolute Neuts (auto) 6.3 (2.0-8.3) x10*3/uL Absolute Nucleated RBC 0.000 (0.0-0.012) X10*3/uL Nucleated RBC % (auto) 0.0 (0.0-0.2) /100WBC Sodium 136 (135-145) mmol/L Potassium 4.7 D (3.3-5.1) mmol/L Chloride 99 (96-108) mmol/L Carbon Dioxide 27 (22-29) mmol/L Anion Gap 15 (12-20) BUN 11 (9-16) mg/dL Creatinine 0.75 (0.5-1.4) mg/dL Estim Creat Clear Calc 97.6 Estimated GFR > 60 Random Glucose 101 (60-115) mg/dL Calcium 9.4 (8.4-10.2) mg/dL Troponin I High Sens < 2.7 (<3.5-35.0) ng/L Independent Interpretation I performed an independent interpretation of an: EKG Radiology Impression Discussion of test interpretation with radiology: I have reviewed the radiologist's reading. Discharge Plan Discharge Clinical Impression: Atypical chest pain, Anxiety Patient Disposition: Home, Self-Care Instructions: Chest Pain (ED), Anxiety (ED) Additional Instructions: Your chest pain is likely from inflammation of the cartilage not from the heart Possible anxiety causing the pain Ibuprofen for pain as needed Follow with your PCP Prescriptions: New ibuprofen 600 mg tablet 600 mg PO Q6H PRN (Reason: fever or pain) Qty: 30 0RF No Action simvastatin 10 mg tablet 10 mg PO BEDTIME 90 Days Qty: 90 2RF lisinopril-hydrochlorothiazide 10-12.5 mg tablet 1 tab PO DAILY 90 Days Qty: 90 2RF finasteride 5 mg tablet 5 mg PO DAILY 90 Days Qty: 90 1RF lorazepam 0.5 mg tablet 0.5 mg PO BID 30 Days Qty: 60 1RF carisoprodol [Soma] 350 mg tablet 350 mg PO BEDTIME 30 Days Qty: 30 2RF Print Language: Togolese
[2024-08-16 01:46] VITALS: BP 113/74; PULSE 91; RESP 18; TEMP 36.7; O2SAT 98
[2024-08-16] MEDS: Ibuprofen 600 MG TABLET PO (02:23)
[2024-08-16 02:34] VITALS: BP 113/74; PULSE 91; RESP 18; TEMP 36.7; O2SAT 98
== END 2024-08-16 02:35 | disposition home or self-care (01) ==
PROVIDERS: Emergency Provider Internal Medicine; PCP Physician Assistant
DX: R07.89 Other chest pain (principal); I10 Essential (primary) hypertension; R07.81 Pleurodynia; F41.1 Generalized anxiety disorder; F43.0 Acute stress reaction; Z79.899 Other long term (current) drug therapy
CPT/HCPCS: 36415; 71045; 80048; 84484; 85025; 93005; 99284; 99285

== ENCOUNTER → 2024-08-15 23:45 | Outpatient (BNV) | payer OTHER, SELFPAY | PROVIDERS: Emergency Provider Internal Medicine; PCP Physician Assistant; Visit Provider Internal Medicine | DX: R07.9 Chest pain, unspecified (principal) | CPT/HCPCS: 93010 ==

== ENCOUNTER 2024-11-23 16:25 | Outpatient (REF) | payer OTHER, SELFPAY ==
[2024-11-23 17:07] LABS: Hematocrit 39.5 % (42.0-52.0); Hemoglobin 14.1 g/dl (14.0-18.0); Mean Corpuscular HGB Conc 35.7 g/dl (31.0-36.0); Mean Corpuscular Hemoglobin 31.2 pg (27.0-33.0); Mean Corpuscular Volume 87.4 fL (80.0-98.0); Mean Platelet Volume 8.9 fL (9.4-12.4); Platelet Count 235 X10*3/uL (160-400); Red Blood Count 4.52 X10*6/uL (4.60-5.80); Red Cell Distribution Width 11.9 % (11.0-16.0); White Blood Count 8.5 X10*3/uL (4.8-10.8)
[2024-11-23 17:34] LABS: Alanine Aminotransferase 30 U/L (0-40); Albumin Level 4.6 g/dL (3.5-5.0); Alkaline Phosphatase 68 U/L (39-117); Anion Gap 15 (12-20); Aspartate Amino Transferase 39 U/L (5-37); Bilirubin Total 1.3 mg/dL (0.0-1.0); Blood Urea Nitrogen 21 mg/dL (9-16); Calcium 9.2 mg/dL (8.4-10.2); Carbon Dioxide 25 mmol/L (22-29); Chloride 99 mmol/L (96-108); Cholesterol 215 mg/dL (<200); Estimated Glomerular Filt Rate > 60; Glucose Fasting 70 mg/dL (60-99); HDL Cholesterol 91 mg/dL (>40); LDL Cholesterol Calculated 116 mg/dL (<100); Potassium 3.7 mmol/L (3.3-5.1); Sodium 135 mmol/L (135-145); Total Protein 7.7 g/dL (6.5-8.0); Triglycerides 43 mg/dL (<150)
[2024-11-23 17:54] LABS: Prostate Specific Antigen Scr 2.75 ng/mL (<0.05-4.0)
[2024-11-23 19:00] LABS: Creatinine Urine 112.84 mg/dL; Microalbum/Creatinine Ratio Ur 5.3 ug/mg cr (<30)
== END 2024-11-23 16:26 | disposition home or self-care (01) ==
LOC: HO.LAB 16:25
PROVIDERS: PCP Physician Assistant; Visit Provider Physician Assistant
DX: I10 Essential (primary) hypertension (principal); Z12.5 Encounter for screening for malignant neoplasm of prostate; R97.20 Elevated prostate specific antigen [PSA]; E78.2 Mixed hyperlipidemia
CPT/HCPCS: 36415; 80053; 80061; 82043; 82570; 84153; 85027

== ENCOUNTER 2024-11-29 15:38 | Outpatient (AMB) | payer OTHER, SELFPAY ==
--- NOTE | 2024-11-29 15:39 | A.OFFPC_ITS ---
Vital Signs 11/29/24 15:43 11/29/24 15:58 Height 5 ft 8 in Weight 141 lb 8 oz BMI 21.5 BP 142/80 H 138/88 Blood Pressure Location Lt brachial Position Sitting Pulse 86 Pulse Source Pulse Oximeter Temp 97.8 F Temp Source Temporal Artery Scan Pulse Oximetry (%) 97 Oxygen Delivery Method Room Air Intake Visit Reasons: 6 month f/u Java Performance Engineer Required: No Accompanied by: Self / Same As Patient Allergies buspirone [From BuSpar] Allergy (Unknown, Verified 11/29/24 15:50) anxious Medication List - Last Reconciled 11/29/24 by Jonathon Man PA-C carisoprodol (Soma) 350 mg PO BEDTIME 30 days finasteride 5 mg PO DAILY 90 days ibuprofen 600 mg PO Q6H PRN lisinopril-hydrochlorothiazide 10-12.5 mg 1 tab PO DAILY 90 days lorazepam 0.5 mg PO BID 30 days simvastatin 10 mg PO BEDTIME 90 days Tobacco use date assessed: 11/29/24 Dental Screening Dental Screen Date: 11/29/24 Did you have a dental visit in the last 12 months?: Yes Did you have a dental problem in the last 6 months where you did not have access to dental care?: No Was dental information given to patient?: Patient has dentist HPI 6 month f/u HPI Details Patient is a 59-year-old male here today for a follow-up visit.? Patient has a past medical history significant for hyperlipidemia, generalized anxiety disorder, chronic low back pain. .. Anxiety:? Patient does not see a therapist at this time, does use lorazepam few times per week with good effect on reducing anxiety .. .. Hyperlipidemia:? Most recent fasting lipid panel acceptable showing slightly elevated total cholesterol and LDL. He does admit to some dietary indiscretion over the winter , Continues on low-dose statin therapy without any side effects. .. Lumbar spine pain:? Reports having a back injury several years ago, does use Soma on a p.r.n. basis due to his labor-intensive job.? 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 Mother No problems noted. 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 ) Questionnaire PHQ-9 Over the last 2 weeks, how often have you been bothered by any of the following problems? 1. Little interest or pleasure in doing things: not at all 2. Feeling down, depressed, or hopeless: not at all 3. Trouble falling or staying asleep, or sleeping too much: not at all 4. Feeling tired or having little energy: not at all 5. Poor appetite or overeating: not at all 6. Feeling bad about yourself - or that you are a failure or have let yourself or your family down: not at all 7. Trouble concentrating on things, such as reading the newspaper or watching television: not at all 8. Moving or speaking so slowly that other people could have noticed. Or the opposite - being so fidgety or restless that you have been moving around a lot more than usual: not at all 9. Thoughts that you would be better off or of hurting yourself in some way: not at all Total score: 0 Depression Screening Interpretation: Negative Depression Screening Done: Yes 68514 - PHQ-9 Billing: Yes Source: Developed by Drs. Etienne Contreras, Caro Neil, Anmol Rocha and colleagues, with an educational nettie from [employer]. Thrive Questionnaire Date Thrive assessed: 11/29/24 AUDIT C Alcohol Use Questionnaire (AUDIT-C) 1. How often do you have a drink containing alcohol?: 2-3 times a week 2. How many drinks containing alcohol do you have on a typical day when you are drinking?: 3 or 4 3. How often do you have six or more drinks on one occasion?: Weekly Total Score: 7 KANWAL-7 AMB Questionnaire KANWAL-7 Date KANWAL - 7 assessed: 11/29/24 Feeling nervous, anxious, or on edge: 0 = Not at all Not being able to stop or control worryin = Not at all Worrying too much about different things: 0 = Not at all Trouble relaxin = Not at all Being so restless that it is hard to sit still: 0 = Not at all Becoming easily annoyed or irritable: 0 = Not at all Feeling afraid as if something awful might happen: 0 = Not at all Total KANWAL-7 score (0-4 normal; 5-9 mild; 10-14 moderate; 15-21 severe): 0 Source: Developed by Drs. Etienne Contreras, Caro Neil, Anmol Rocha and colleagues, with an educational nettie from [employer]. KANWAL-7 Assessment Billing KANWAL-7 Assessment Tool: KANWAL-7 Assessment 00657 Review of Systems Const Denies headache(s) Eyes Denies loss of vision ENT Denies vertigo, Denies dizziness, Denies headache(s) and Denies sore throat Card Denies chest pain, Denies leg edema and Denies lightheadedness Resp Denies cough, Denies hemoptysis and Denies wheezing GI Denies abdominal pain, Denies melena, Denies constipation, Denies diarrhea and Denies vomiting Denies dysuria, Denies urinary frequency and Denies urinary urgency Musc Denies arthralgias, Denies joint swelling, Denies numbness and Denies tingling Neuro Denies Abnormal speech present, Denies behavioral changes, Denies vertigo, Denies dizziness, Denies headache(s), Denies loss of vision, Denies memory loss, Denies numbness and Denies tingling Psych Denies anxiety, Denies behavioral changes, Denies depression, Denies memory loss and Denies panic attacks Eladio/Lymph Denies easy bleeding and Denies easy bruising Aller/Immun Denies wheezing Physical exam (Primary Care) Vital Signs: Last Vital Signs Temp 97.8 F 11/29/24 15:43 Pulse 86 11/29/24 15:43 BP 138/88 11/29/24 15:58 Pulse Ox 97 11/29/24 15:43 Oxygen Delivery Method Room Air 11/29/24 15:43 BMI result Body Mass Index 21.5 Tobacco/Smoking Status: Tobacco use Status Tobacco use date assessed 11/29/24 11/29/24 15:41 Patient Tobacco Use Status Never used Tobacco 11/29/24 15:41 e-Cigarette/Vaping Use Never Used 11/29/24 15:41 PHQ-9: PHQ-9 Score PHQ-9: Total score 0 11/29/24 15:51 Depression Screening Interpretation: Negative Thrive Assessment: Date of Thrive Assessment Date Thrive assessed 11/29/24 11/29/24 15:41 Const General: healthy appearing, no acute distress, alert and awake Nutritional Appearance: well nourished Orientation/consciousness: oriented to person, oriented to place and oriented to time HENMT Ears: TM's normal bilaterally General nose exam: Normal nasal mucous membranes and turbinates present Eyes Conjunctivae: conjunctivae normal Sclerae: sclerae normal Pupils: Equal, round and reactive pupils present Neck Neck: Yes no lymphadenopathy and Yes no JVD Thyroid: Thyroid normal Carotids: no bruits Resp Effort & Inspection: normal respiratory effort and not tachypneic Auscultation: no crackles, no rales, no rhonchi and no wheezes Cardio Rate: regular rate Rhythm: regular rhythm Heart sounds: no murmurs and normal S1 and S2 GI Palpation (GI): Soft to palpation, nontender, no hepatomegaly and no splenomegaly Auscultation: normal bowel sounds Skin General skin exam: no rashes or lesions noted and dry skin Neuro General: oriented to person, oriented to place and oriented to time Cranial nerves: Yes Equal, round and reactive pupils present Speech: No Abnormal speech present Gait exam (Neuro): Normal gait present Motor exam (neuro): no tremor noted Extrem Right upper extremity: full ROM Left upper extremity: full ROM Right lower extremity: full ROM; no edema Left lower extremity: full ROM; no edema Psych Mental Status: mental status grossly normal Speech and movement: Normal speech and movement present Affect: normal affect Attitude: cooperative Thought process: Normal thought process present Coding Level of Care Code Est Pt Level 4 (85470) Diagnoses Primary hypertension I10 Hypertension type: primary hypertension KANWAL (generalized anxiety disorder) F41.1 Mixed hyperlipidemia E78.2 Hyperlipidemia type: mixed hyperlipidemia Additional Codes KANWAL-7 Assessment Billing - KANWAL-7 Assessment Tool: KANWAL-7 Assessment 97708 ([id number]) PHQ-9 - 32845 - PHQ-9 Billing: Yes ([id number]) Assessment & Plan Assessment & Plan (1) HTN (hypertension): Code(s): I10 - Essential (primary) hypertension Category: Medical Qualifiers: Hypertension type: primary hypertension Qualified Code(s): I10 - Essential (primary) hypertension Plan: Patient's blood pressure slightly elevated today in office, he does report having had a stressful day today usually blood pressure stable.. Will continue him on his current dose of lisinopril hydrochlorothiazide. Goal blood pressures to be below 140/90 (2) KANWAL (generalized anxiety disorder): Code(s): F41.1 - Generalized anxiety disorder Category: Medical Plan: Patient reports his anxiety is fairly well controlled. Does use lorazepam from time to time for hypotensive anxiety. (3) HLD (hyperlipidemia): Code(s): E78.5 - Hyperlipidemia, unspecified Category: Medical Qualifiers: Hyperlipidemia type: mixed hyperlipidemia Qualified Code(s): E78.2 - Mixed hyperlipidemia Plan: Patient's most recent lipid panel showing excellent control of his total cholesterol and LDL. He continues on simvastatin 10 mg without any side effect. Goal LDL is to remain below 160 Orders: Orders Comprehensive [place]. Panel Fast 11/29/24 I10 - Essential (primary) hypertension Lipid Panel 11/29/24 E78.2 - Mixed hyperlipidemia Complete Blood Count no Diff 11/29/24 I10 - Essential (primary) hypertension Medications: Refilled carisoprodol (Soma) 350 mg PO BEDTIME 30 days 30 tabs 2RF muscle pain M62.830 - Muscle spasm of back lorazepam 0.5 mg PO BID 30 days 60 tabs 3RF F41.1 - Generalized anxiety disorder Patient Instructions: Goal: Blood pressure to remain below 140/90 Barriers: Adherence to physical activity and healthy eating habits
[2024-11-29 15:43] VITALS: BP 142/80; PULSE 86; TEMP 36.6; O2SAT 97; BMI 21.5
[2024-11-29 15:58] VITALS: BP 138/88
--- OUTSIDE RECORDS SUMMARY | 2024-11-29 17:47 | XMS_ITS | Patient Health Record ---
Author Organization [facility] Address [address] [place] [address] Care Team Providers Care Food And Drug Research Scientist Name Role Phone Jonathon Man Primary Care Provider Unavailab Etienne Ling [phone] Reason For Referral No Information Medications Medication SIG (Take, Route, Fr equency, Duration) Notes Start Date End Date Status Simvastatin Active LORazepam 0.5 MG 1 tablet as needed Orally prn prn Active Soma prn Active Motrin IB 200 MG 4 tablet with food o r milk as needed Orally prn Not daily Active Social History Tobacco Use: Social History Observation Description Date Details (start date - stop date) Never Smoker NA - NA Tobacco Use/Smoking Question Answer Notes Patient is [...] Never (0 point) Points 4 Interpretation Positive Section Notes: Nonsmoker; no sig alcohol Problems Problem Type SNOMED Code ICD Code Onset Dates Problem Status W/U Status Risk Notes Problem [id number] Encounter for screening for malignant neoplasm of colon (Z12.11) Active confirmed Problem 802586546 Pre-procedural examination (Z01.818) Active confirmed Encounters Encounter Location Date Provider Diagnosis [facility] [address] [place] [address] 05/15/2024 Etienne Lynn Plan Of Treatment Future Test Test Name Order Date COLONOSCOPY 12/29/2017 Insurance Providers Payer Name Payer Address Payer Phone Subscriber Number Group Number Insured Name Patient Relationship to Insured Coverage Start Date Coverage End Date [facility] [address] [place] [id number] ABEL BERGER Self - patient is the insured Medical (General) History Medical History History ICD Code Denies DE,DM,CVA,Lung disease,renal dise ase Back pain Hyperlipidemia
--- OUTSIDE RECORDS SUMMARY | 2024-11-29 17:47 | XMS_ITS ---
Author Organization [facility] Address [address] [place] [address] Care Team Providers Care Buffet Manager Name Role Phone Jonathon Man Primary Care Provider Unavailab Etienne Ling [phone] REASON FOR VISIT returned your call Encounters Encounter Location Date Provider Diagnosis [facility] [address] [place] [address] 05/15/2024 Etienne Lynn Plan Of Treatment No Information Progress Notes * ABEL BERGER ADOB:1 09/10/1964 (58 yo M)Acc No.[id number]:05/15/2024 Patient:?SILVIO BERGER :1965???Age:58 Y???Sex:Male Address:[address] [place] [address] [place], [address] * true * Date:? Generated for Alexandri ofelia/Kaylan/eTransmitting on:?11/29/2024 05:47 PM EDT
--- OUTSIDE RECORDS SUMMARY | 2024-11-29 17:47 | XMS_ITS ---
Author Organization [facility] Address [address] [place] [address] Care Team Providers Care Meat Counter Worker Name Role Phone Jonathon Man Primary Care Provider Unavailab Etienne Ling [phone] REASON FOR VISIT COLON SCREENING Encounters Encounter Location Date Provider Diagnosis [facility] [address] [place] [address] 07/13/2023 Etienne Lynn Plan Of Treatment No Information Progress Notes * ABEL BERGER ADOB:1 09/10/1964 (59 yo M)Acc No.[id number]:07/13/2023 Progress Notes Patient:?SILVIO BERGER Provider:?Etienne Lynn MD :1965???Age:58 Y???Sex:Male Jaret e:07/13/2023 Address:[address] [place] [address] [place] [facility] Pcp:Jonathon Man Subjective: * Chief Complaints: * ???1. COLON SCREENING. * Medical History:? Objective: * Vitals:? Assessment: Plan: * Treatment: * * The named appointment provid er may or may not be the originator of this progress note, and it is not deemed complete until electronically signed by the appointment provider. Sign off status: Pending * Provider:?Etienne Lynn MD Date:? 023 Generated for Printi ng/Faheracliog/eTransmitting on:?11/29/2024 05:46 PM EDT
== END 2024-11-29 16:05 | disposition home or self-care (01) ==
LOC: HO.HMCH 15:38
PROVIDERS: PCP Physician Assistant; Visit Provider Physician Assistant
DX: I10 Essential (primary) hypertension (principal); F41.1 Generalized anxiety disorder; E78.2 Mixed hyperlipidemia

== ENCOUNTER → 2024-11-29 15:38 | Outpatient (BNVA) | payer OTHER, SELFPAY | PROVIDERS: PCP Physician Assistant; Visit Provider Physician Assistant | DX: I10 Essential (primary) hypertension (principal); F41.1 Generalized anxiety disorder; E78.2 Mixed hyperlipidemia; Z79.899 Other long term (current) drug therapy | CPT/HCPCS: 96127 ==

== ENCOUNTER 2025-06-07 16:11 | Outpatient (REF) | payer OTHER, SELFPAY ==
[2025-06-07 17:27] LABS: Hematocrit 40.4 % (42.0-52.0); Hemoglobin 13.8 g/dl (14.0-18.0); Mean Corpuscular HGB Conc 34.2 g/dl (31.0-36.0); Mean Corpuscular Hemoglobin 30.7 pg (27.0-33.0); Mean Corpuscular Volume 89.8 fL (80.0-98.0); NRBC Abs Auto 0.000 X10*3/uL (0.0-0.012); NRBC Pct Auto 0.0 /100WBC (0.0-0.2); Platelet Count 214 X10*3/uL (160-400); Red Blood Count 4.50 X10*6/uL (4.60-5.80); White Blood Count 7.2 X10*3/uL (4.8-10.8)
[2025-06-07 18:51] LABS: Alanine Aminotransferase 22 U/L (0-40); Albumin Level 4.8 g/dL (3.5-5.0); Alkaline Phosphatase 84 U/L (39-117); Anion Gap 16 (12-20); Aspartate Amino Transferase 29 U/L (5-37); Blood Urea Nitrogen 15 mg/dL (9-16); Calcium 9.4 mg/dL (8.4-10.2); Carbon Dioxide 25 mmol/L (22-29); Chloride 100 mmol/L (96-108); Cholesterol 200 mg/dL (<200); Estimated Glomerular Filt Rate > 60; HDL Cholesterol 72 mg/dL (>40); Potassium 3.8 mmol/L (3.3-5.1); Sodium 137 mmol/L (135-145); Total Protein 7.6 g/dL (6.5-8.0); Triglycerides 71 mg/dL (<150)
== END 2025-06-07 16:12 | disposition home or self-care (01) ==
LOC: HO.LAB 16:11
PROVIDERS: PCP Physician Assistant; Visit Provider Physician Assistant
DX: E78.2 Mixed hyperlipidemia (principal); I10 Essential (primary) hypertension
CPT/HCPCS: 36415; 80053; 80061; 85027

== ENCOUNTER 2025-06-11 15:45 | Outpatient (AMB) | payer OTHER, SELFPAY ==
--- OUTSIDE RECORDS SUMMARY | 2025-06-11 15:48 | XMS_ITS | Patient Health Record ---
Author Organization [facility] Address [address] [place] [address] Care Team Providers Care Cloth Hand Name Role Phone Jonathon Man Primary Care Provider Unavailab Etienne Ling Unavailable [phone] Reason For Referral No Information Medications Medication [...] Problem Status W/U Status Risk Notes Problem Screening for malignant neoplasm of colon (478453791) Encounter for screening for malignant neoplasm of colon (Z12.11) Active confirmed Problem Pre-procedure evaluation check (454644167) Pre-procedural examination (Z01.818) Active confirmed Plan Of Treatment Future Test Test Name Order Date COLONOSCOPY 12/29/2017 Insurance Providers Payer Name Payer Address Payer Phone Subscriber Number Group Number Insured Name Patient Relationship to Insured Coverage Start Date Coverage End Date [facility] [address] [place] [address] [id number] ABEL BERGER Self - patient is the insured Medical (General) History Medical History History ICD Code Denies VT,DM,CVA,Lung disease,renal dise ase Back pain Hyperlipidemia
--- NOTE | 2025-06-11 16:08 | A.OFFPC_ITS ---
Vital Signs 06/11/25 16:09 Height 5 ft 8 in Weight 139 lb 2 oz BMI 21.2 BP 130/80 Blood Pressure Location Lt brachial Position Sitting Pulse 73 Pulse Source Pulse Oximeter Temp 97.3 F Temp Source Temporal Artery Scan Pulse Oximetry (%) 97 Oxygen Delivery Method Room Air Intake Visit Reasons: annual exam Intake Note: Patient is here today for a physical. 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: Not Required per policy Accompanied by: Self / Same As Patient Allergies buspirone (From BuSpar) Allergy (Unknown, Verified 06/11/25 16:16) anxious Medication List - Last Reconciled 06/11/25 by Jonathon Man PA-C carisoprodol (Soma) 350 mg PO BEDTIME 30 days finasteride 5 mg PO DAILY 90 days ibuprofen 600 mg PO Q6H PRN lisinopril-hydrochlorothiazide 10-12.5 mg 1 tab PO DAILY 90 days lorazepam 0.5 mg PO BID 30 days simvastatin 10 mg PO BEDTIME 90 days Tobacco use date assessed: 06/11/25 Dental Screening Dental Screen Date: 11/29/24 HPI annual exam HPI Details Patient is a 59-year-old male here today for a routine annual physical Patient has a past medical history significant for hyperlipidemia, generalized anxiety disorder, chronic low back pain. .. Anxiety:? Patient reports he has been having a more bit of anxiety as of lately. does use lorazepam few times per week with good effect on reducing anxiety. He reports he takes care of his whom is physically disabled. .. .. Hyperlipidemia:? Most recent fasting lipid panel acceptable showing slightly elevated total cholesterol and LDL. He does admit to some dietary indiscretion over the winter , Continues on low-dose statin therapy without any side effects. .. Lumbar spine pain:? Reports having a back injury several years ago, does use Soma on a p.r.n. basis due to his labor-intensive job.? 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 Vaccines:? UTD Tdap,? UTD with COVID. needs Shingrex, declines flu vaccine .. ?Colon cancer screening:? Done in 2018 ( Dr Lynn) needed repeat 10 years, hyperplastic polyp found Laboratory Tests 11/23/24 06/07/25 16:34 16:26 RBC 4.50 L Hgb 14.1 13.8 L BUN 15 Creatinine 0.70 Total Bilirubin 1.0 Cholesterol 215 H 200 H PFSH Surgical History No pertinent past surgical history Family History Father No problems noted. Mother No problems noted. 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 ) Questionnaire PHQ-9 Over the last 2 weeks, how often have you been bothered by any of the following problems? 1. Little interest or pleasure in doing things: not at all 2. Feeling down, depressed, or hopeless: not at all 3. Trouble falling or staying asleep, or sleeping too much: not at all 4. Feeling tired or having little energy: not at all 5. Poor appetite or overeating: not at all 6. Feeling bad about yourself - or that you are a failure or have let yourself or your family down: not at all 7. Trouble concentrating on things, such as reading the newspaper or watching television: not at all 8. Moving or speaking so slowly that other people could have noticed. Or the opposite - being so fidgety or restless that you have been moving around a lot more than usual: not at all 9. Thoughts that you would be better off or of hurting yourself in some way: not at all Total score: 0 Depression Screening Interpretation: Negative Depression Screening Done: Yes 49594 - PHQ-9 Billing: Yes Source: Developed by Drs. Etienne Contreras, Caro Neil, Anmol Rocha and colleagues, with an educational nettie from [employer]. Thrive Questionnaire Date Thrive assessed: 11/29/24 I am a: Patient What is your living situation today?: I have a steady place to live Within the past 12 months, did the food you bought not last and you didn't have the money to get more?: Never true Within the past 12 months, did you worry whether your food would run out before you got money to buy more?: Never true Do you have trouble paying for medicines?: No Do you have trouble getting transportation to medical appointments?: No Do you have trouble paying your heating and electricity bill?: No Do you have trouble taking care of your child, family member or friend?: No Do you have trouble with day-to-day activities such as bathing, preparing meals, shopping, managing finances, etc.?: No Are you currently unemployed and looking for a job?: No Are you interested in more education?: No Please select the resources that you would like help with: None Currently or been in a relationship where the following occur: I choose not to answer THRIVE Score: 0 AUDIT C Alcohol Use Questionnaire (AUDIT-C) 1. How often do you have a drink containing alcohol?: 2-3 times a week 2. How many drinks containing alcohol do you have on a typical day when you are drinking?: 3 or 4 3. How often do you have six or more drinks on one occasion?: Weekly Total Score: 7 KANWAL-7 AMB Questionnaire KANWAL-7 Date KANWAL - 7 assessed: 11/29/24 Feeling nervous, anxious, or on edge: 2 = More than half the days Not being able to stop or control worryin = More than half the days Worrying too much about different things: 0 = Not at all Trouble relaxin = Not at all Being so restless that it is hard to sit still: 0 = Not at all Becoming easily annoyed or irritable: 0 = Not at all Feeling afraid as if something awful might happen: 0 = Not at all Total KANWAL-7 score (0-4 normal; 5-9 mild; 10-14 moderate; 15-21 severe): 4 Source: Developed by Drs. Etienne Contreras, Caro Neil, Anmol Rocha and colleagues, with an educational nettie from [employer] KANWAL-7 Assessment Billing KANWAL-7 Assessment Tool: KANWAL-7 Assessment 28556 Review of Systems Const Denies body aches, Denies chills, Denies excessive sweating, Denies fatigue, Denies fever(s) and Denies headache(s) Eyes Denies blurry vision ENT Denies dysphagia, Denies vertigo, Denies dizziness, Denies headache(s), Denies hearing loss and Denies tinnitus Card Denies chest pain, Denies chest pain with activity, Denies syncope, Denies irregular heart rhythm and Denies dyspnea Resp Denies chest congestion, Denies cough, Denies hemoptysis, Denies dyspnea and Denies wheezing GI Denies abdominal pain, Denies melena, Denies hematochezia, Denies coffee ground emesis, Denies dysphagia, Denies diarrhea, Denies nausea and Denies vomiting Denies difficulty urinating, Denies dysuria, Denies urinary frequency, Denies urinary hesitancy and Denies urinary urgency Musc Denies arthralgias, Denies limited range of motion, Denies muscle cramps and Denies muscle weakness Skin/Breast Denies rash and Denies skin ulcer Neuro Denies Abnormal speech present, Denies confusion, Denies vertigo, Denies dizziness, Denies syncope, Denies headache(s), Denies memory loss and Denies seizure-like activity Psych Denies anxiety, Denies confusion, Denies depression, Denies memory loss, Denies panic attacks and Denies paranoia Endo Denies excessive sweating, Denies fatigue, Denies flushing, Denies polydipsia and Denies polyuria Aller/Immun Denies wheezing Physical exam (Primary Care) Vital Signs: Last Vital Signs Temp 97.3 F 06/11/25 16:09 Pulse 73 06/11/25 16:09 BP 130/80 06/11/25 16:09 Pulse Ox 97 06/11/25 16:09 Oxygen Delivery Method Room Air 06/11/25 16:09 BMI result Body Mass Index 21.2 Tobacco/Smoking Status: Tobacco use Status Tobacco use date assessed 06/11/25 06/11/25 16:12 Patient Tobacco Use Status Never used Tobacco 06/11/25 16:20 e-Cigarette/Vaping Use Never Used 06/11/25 16:20 PHQ-9: PHQ-9 Score PHQ-9: Total score 0 06/11/25 16:26 Depression Screening Interpretation: Negative Thrive Assessment: Date of Thrive Assessment Date Thrive assessed 11/29/24 06/11/25 16:12 Currently or been in a relationship where the following occur: I choose not to answer Const General: cooperative, comfortable, no acute distress, alert and awake; No confusion Orientation/consciousness: oriented to person, oriented to place, patient oriented x3 and No confusion HENMT Head: Yes normocephalic Ears: external ears normal and TM's normal bilaterally Face and sinus: No sinus tenderness Mouth: Normal oral and palatal mucosa present and tongue normal Teeth and gingiva: dentition normal and gingiva normal Throat: Yes posterior oropharynx normal, Yes tonsils normal and Yes uvula midline Eyes Conjunctivae: conjunctivae normal Sclerae: sclerae normal Pupils: Equal, round and reactive pupils present EOM: EOMs intact bilaterally Direct Ophthalmoscopy: No no photophobia Neck Neck: Yes no lymphadenopathy, No tender and Yes no JVD Thyroid: Thyroid normal Carotids: no bruits Chest Chest palpation & inspection: no tenderness Resp Effort & Inspection: normal respiratory effort, no audible wheezes, not labored and no stridor Auscultation: no crackles, no rales, no rhonchi and no wheezes Cardio Jugular venous distension: no JVD Rate: regular rate, not bradycardic and not tachycardic Rhythm: regular rhythm Bruits: no carotid bruits Peripheral pulses: Peripheral pulses 2+ throughout GI Inspection: Yes normal to inspection, No abdominal wall ecchymosis and No visible herniation Palpation (GI): Soft to palpation, nontender, no guarding, not rigid and No hepatosplenomegaly present Auscultation: normoactive bowel sounds General: Yes no CVA tenderness Back/Spine/Pelvis Back: no CVA tenderness and No back tenderness Cervical Spine: cervical ROM normal Thoracic/Lumbar Spine: thoracic and lumbar spine normal to inspection, straight leg raise negative bilaterally, No thoraco-lumbar ROM limited and No lumbar spinal tenderness Skin Lesions: no lesions Rashes: no rashes Wounds: no wounds Neuro General: oriented to person, oriented to place, patient oriented x3, CN's II-XI intact bilaterally and No confusion Cranial nerves: Yes Equal, round and reactive pupils present and Yes Normal accommodation reflex present Cognition (Neuro): normal cognition Speech: No Abnormal speech present Gait exam (Neuro): Normal gait present Motor exam (neuro): 5/5 motor strength present throughout Extrem Right upper extremity: full ROM; no cyanosis Left upper extremity: full ROM; no cyanosis Right lower extremity: no edema Left lower extremity: no edema Psych Appearance: grossly normal Mental Status: mental status grossly normal Affect: normal affect Attitude: cooperative Thought process: Normal thought process present Coding Level of Care Code Est Pt Prev Care 40-64y(48436) Diagnoses Annual physical exam Z00.00 Primary hypertension I10 Hypertension type: primary hypertension KANWAL (generalized anxiety disorder) F41.1 Mixed hyperlipidemia E78.2 Hyperlipidemia type: mixed hyperlipidemia Additional Codes PHQ-9 - 05889 - PHQ-9 Billing: Yes ([id number]) KANWAL-7 Assessment Billing - KANWAL-7 Assessment Tool: KANWAL-7 Assessment 70168 ([id number]) Assessment & Plan Assessment & Plan (1) Annual physical exam: Code(s): Z00.00 - Encounter for general adult medical examination without abnormal findings Category: Medical Plan: As per HPI (2) HTN (hypertension): Code(s): I10 - Essential (primary) hypertension Category: Medical Qualifiers: Hypertension type: primary hypertension Qualified Code(s): I10 - Essential (primary) hypertension Plan: Patient's blood pressure acceptable today in offic.. Will continue him on his current dose of lisinopril hydrochlorothiazide. Goal blood pressures to be below 140/90 (3) KANWAL (generalized anxiety disorder): Code(s): F41.1 - Generalized anxiety disorder Category: Medical Plan: Patient's KANWAL-7 score positive for anxiety which has been existing condition for him. Patient reports his anxiety is fairly well controlled. Does use lorazepam from time to time for elevated anxiety. (4) HLD (hyperlipidemia): Code(s): E78.5 - Hyperlipidemia, unspecified Category: Medical Qualifiers: Hyperlipidemia type: mixed hyperlipidemia Qualified Code(s): E78.2 - Mixed hyperlipidemia Plan: Patient's most recent lipid panel showing decent control of his total cholesterol and LDL. He continues on simvastatin 10 mg without any side effect. Goal LDL is to remain below 160 Orders: Orders Microalbumin, Random (w Creat) 06/11/25 I10 - Essential (primary) hypertension Complete Blood Count no Diff 06/11/25 I10 - Essential (primary) hypertension Comprehensive [place]. Panel Fast 06/11/25 I10 - Essential (primary) hypertension Lipid Panel 06/11/25 E78.2 - Mixed hyperlipidemia Prostate Specific Antigen Scr 06/11/25 R97.20 - Elevated prostate specific antigen [PSA], Z12.5 - Encounter for screening for malignant neoplasm of prostate Medications: Refilled lorazepam 0.5 mg PO BID 60 tabs 3RF 30 days F41.1 - Generalized anxiety disorder carisoprodol (Soma) 350 mg PO BEDTIME 30 tabs 2RF muscle pain 30 days M62.830 - Muscle spasm of back Patient Instructions: Goal: Blood pressure to remain below 140/90, LDL to remain below 130 Barriers: Adherence to physical activity and healthy eating habits
[2025-06-11 16:09] VITALS: BP 130/80; PULSE 73; TEMP 36.3; O2SAT 97; BMI 21.2
== END 2025-06-11 16:34 | disposition home or self-care (01) ==
LOC: HO.HMCH 15:46
PROVIDERS: PCP Physician Assistant; Visit Provider Physician Assistant
DX: Z00.00 Encounter for general adult medical examination without abnormal findings (principal); I10 Essential (primary) hypertension; F41.1 Generalized anxiety disorder; E78.2 Mixed hyperlipidemia

== ENCOUNTER → 2025-06-11 15:45 | Outpatient (BNVA) | payer OTHER, SELFPAY | PROVIDERS: PCP Physician Assistant; Visit Provider Physician Assistant | DX: Z00.00 Encounter for general adult medical examination without abnormal findings (principal); I10 Essential (primary) hypertension; F41.1 Generalized anxiety disorder; E78.2 Mixed hyperlipidemia; M54.50 Low back pain, unspecified; Z79.899 Other long term (current) drug therapy; Z13.31 Encounter for screening for depression | CPT/HCPCS: 96127 ==